=== PATIENT | female | born 1960 | race Caucasian/White ===

== ENCOUNTER 2016-08-13 19:40 | Inpatient (IN) | payer OTHER ==
[~2016-08-13] VITALS: Ht 172.7 cm; Wt 90.7 kg
[2016-08-14] MEDS ORDERED: hydrOXYzine Pamoate 25 mg Capsule PO PRN
[2016-08-14] MEDS ORDERED: Magnesium Hydroxide 10 mL Oral Concentration PO PRN
[2016-08-14] MEDS ORDERED: Benzocaine-Menthol Lozenge 2/Pkg PO PRN ×2 (11:00)
[2016-08-14] MEDS ORDERED: Alum-Mag Hydrox-Simeth 30 mL Suspension PO PRN ×2 (11:00)
[2016-08-14 15:29] VITALS: BP 137/85; PULSE 83; RESP 16
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
[2016-08-16 07:39] VITALS: BP 133/78; PULSE 82; RESP 17
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
[2016-08-17 12:45] VITALS: BP 123/84; PULSE 87; RESP 17
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
[2016-08-18 18:00] VITALS: BP 148/68; PULSE 89; RESP 16
[2016-08-18] MEDS ORDERED: risperiDONE 1 mg Tablet PO SCH (21:00)
[2016-08-19] MEDS: LORazepam 1 mg Tablet PO PRN ×2 (01:56→21:36)
[2016-08-19 07:32] VITALS: BP 130/73; PULSE 86; RESP 16
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
[2016-08-19] MEDS: risperiDONE 1 mg Tablet PO SCH (20:47)
[2016-08-20 10:17] VITALS: BP 130/90; PULSE 88; RESP 16
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
[2016-08-20] MEDS: risperiDONE 1 mg Tablet PO SCH (20:49)
[2016-08-20] MEDS: Magnesium Hydroxide 10 mL Oral Concentration PO PRN (21:01)
[2016-08-21 08:39] VITALS: BP 120/74; PULSE 86; RESP 18
[2016-08-21] MEDS: Magnesium Hydroxide 10 mL Oral Concentration PO PRN (15:15)
[2016-08-21] MEDS: risperiDONE 1 mg Tablet PO SCH (20:58)
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
[2016-08-22 18:30] VITALS: BP 124/71; PULSE 86; RESP 16
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
[2016-08-22] MEDS: risperiDONE 1 mg Tablet PO SCH (20:41)
[2016-08-23 16:55] VITALS: BP 119/72; PULSE 93; RESP 18
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
[2016-08-23] MEDS: risperiDONE 1 mg Tablet PO SCH (21:23)
[2016-08-24 08:40] VITALS: BP 129/77; PULSE 96; RESP 18
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
[2016-08-24 21:24] LABS: APPEARANCE,URINE CLOUDY (CLEAR,HAZY); COLOR,URINE YELLOW (YELLOW); OCCULT BLOOD,URINE NEGATIVE (NEGATIVE); PH,URINE 8.5 (5.0-8.0); UROBILINOGEN,URINE NORMAL (NORMAL)
[2016-08-25 09:23] VITALS: BP 127/79; PULSE 112; RESP 18
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
[2016-08-26 08:26] VITALS: BP 112/78; PULSE 85; RESP 18
[2016-08-26 08:45] VITALS: BP 112/78; PULSE 85; RESP 18
[2016-08-26] MEDS: Mineral Oil-Petr Hydrophillic 50 Gm Ointment TOPICAL PRN (09:00)
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
[2016-08-27] MEDS: Mineral Oil-Petr Hydrophillic 50 Gm Ointment TOPICAL PRN (08:47)
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
[2016-08-27] MEDS ORDERED: MAGN400T23 PO (12:38)
[2016-08-27] MEDS ORDERED: QUET100T69 PO (12:38)
[2016-08-27] MEDS ORDERED: SACC250C PO (12:38)
[2016-08-27] MEDS ORDERED: CHOL100043 PO (12:38)
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
== END 2016-08-27 13:37 | disposition home or self-care (01) | DRG 885 ==
LOC: MHC 22:47
PROVIDERS: ADMIT Psychiatry & Neurology Psychiatry; ATTEND Psychiatry & Neurology Psychiatry
DX: F31.2 Bipolar disorder, current episode manic severe with psychotic features (principal); G89.29 Other chronic pain